=== PATIENT | female | born 1980 | race Asian ===

== ENCOUNTER 2022-01-21 19:57 | Emergency (ER) | payer OTHER ==
[2022-01-21 21:00] LABS: BASOPHILS % (AUTO) 0.2 %; EOSINOPHILS # (AUTO) 0.1 10^3/uL (0.0-0.7); EOSINOPHILS % (AUTO) 0.6 %; HCT - HEMATOCRIT 40.6 % (37.0-47.0); HGB - HEMOGLOBIN 13.7 g/dL (12.0-16.0); LYMPHOCYTES # (AUTO) 2.1 10^3/uL (1.5-3.5); LYMPHOCYTES % (AUTO) 17.1 %; MEAN CORPUSCULAR HGB CONC 33.7 g/dL (32.0-36.0); MEAN CORPUSCULAR VOLUME 85.8 fL (81.0-99.0); MEAN PLATELET VOLUME 10.7 fL (7.9-10.8); MONOCYTES # (AUTO) 0.9 10^3/uL (0.0-1.0); NEUTROPHILS # (AUTO) 9.2 10^3/uL (1.5-6.6); NEUTROPHILS % (AUTO) 74.9 %; PLT - PLATELET COUNT 217 10^3/uL (130-450); RED BLOOD COUNT 4.73 10^6/uL (4.20-5.40); RED CELL DISTRIBUTION WIDTH 12.6 % (12.0-15.0); WHITE BLOOD COUNT 12.4 x10^3/uL (4.8-10.8)
[2022-01-21 21:14] LABS: ALBUMIN 4.2 g/dL (3.2-5.5); ALBUMIN/GLOBULIN RATIO 1.3 (1.0-2.2); BILIRUBIN,TOTAL 0.5 mg/dL (0.2-1.0); POTASSIUM 3.3 mmol/L (3.5-5.0); TOTAL PROTEIN 7.4 g/dL (6.7-8.2)
[2022-01-21 21:20] LABS: BILIRUBIN,URINE NEGATIVE (NEGATIVE); GLUCOSE, URINE (UA) NEGATIVE (NEGATIVE); KETONES,URINE (UA) NEGATIVE (NEGATIVE); LEUKOCYTE ESTERASE, URINE NEGATIVE (NEGATIVE); NITRITE,URINE NEGATIVE (NEGATIVE); OCCULT BLOOD,URINE TRACE-INTA (NEGATIVE); PROTEIN,URINE TRACE mg/dL (NEGATIVE); UROBILINOGEN,URINE 0.2 (NORMAL) E.U./dL (NORMAL)
[2022-01-21 21:23] LABS: CLARITY,URINE CLEAR (CLEAR); HCG UR QUAL NEGATIVE
[2022-01-21] MEDS ORDERED: KETOROLAC 30 MG/ML VIAL IVP STA (22:43)
[2022-01-21] MEDS ORDERED: HYDROmorphone 1 MG/ML CARPUJECT IVP STA (22:43)
--- NOTE | 2022-01-21 23:39 | Ultrasound Report ---
PROCEDURE: Abdomen Limited INDICATIONS: upper abd pn after eating, AST elev TECHNIQUE: Real-time focused scanning was performed of the abdomen, with image documentation. COMPARISON: None. FINDINGS: The liver is increased in echogenicity suggestive of fatty infiltration. There is is suggestion of an ill-defined hypoechoic oval lesion in the right hepatic lobe measuring up to 1.0 cm. The gallbladder demonstrates no gallstones. There is gallbladder wall thickening including localized masslike thickening in the mid gallbladder measuring approximately 2.1 x 1.5 cm. There is suggestion of associated vascularity on color Doppler interrogation. This demonstrates heterogeneous internal ec hoes. No intrahepatic biliary ductal dilatation. The extrahepatic duct is at the upper limits of normal aleena suring approximately 0.6 cm. The pancreatic head and body appear unremarkable sonographically. The pancreatic tail was not well se en. Right kidney measures 9.6 cm. No hydronephrosis. Intrahepatic IVC appears patent. IMPRESSION: 1. Masslike wall thickening within the mid gallbladder with internal vascularity is suspicious for a mass such as gallbladder carcinoma. Recommend further evaluation with CT or MRI. 2. No gallstones or pericholecystic fluid. Reviewed by: Nathaniel Wood MD on 01/21/2022 11:38 PM PDT Approved by: Nathaniel Wood MD on 01/21/2022 11:38 PM PDT Station ID: [id number]
[2022-01-21] MEDS ORDERED: PIPERACILLIN/TAZOBACTAM 3.375 GM in SODIUM CHLORIDE 0.9% MINIBAG 100 ML IV STA (23:41)
--- NOTE | 2022-01-21 23:46 | CT Report ---
PROCEDURE: Abdomen/Pelvis W INDICATIONS: epigastric pain CONTRAST: IV CONTRAST: Optiray 320 ml: 100 PO CONTRAST: *NO PO CONTRAST TECHNIQUE: After the administration of intravenous contrast, 5 mm thick sections acquired from the diaphragms to the symphysis. 5 mm thick coronal and sagittal reformats were acquired. For radiation dose reducti on, the following was used: automated exposure control, adjustment of mA and/or kV according to mary ent size. COMPARISON: Concurrent ultrasound of the abdomen. FINDINGS: Image quality: Excellent. Lung bases: Unremarkable. Heart: Heart is normal in size. ABDOMEN: Liver: No mass lesion. Gallbladder:There is segmental narrowing and wall thickening of the mid gallbladder. No calcified ga llstones. Biliary ducts: No biliary ductal dilatation. Pancreas: Unremarkable. Spleen: Normal in size. Adrenal Glands: No adrenal nodules. Kidneys and Ureters: No hydronephrosis. Stomach and Bowel:There is moderate distention of the stomach. Mild wall thickening is noted in the gastric antrum. Small and large bowel are normal in caliber and wall thickness. The appendix is keysha l in appearance. Peritoneum:There is a small amount of intraperitoneal free fluid which appears within physiologic li mits. No free air. Ventral Wall: No hernia. Abdominal Nodes: No retroperitoneal or mesenteric adenopathy by size criteria. Vessels: Aorta and inferior vena cava are normal in size. PELVIS: Pelvic Organs: Unremarkable. Bladder: Unremarkable. Pelvic Nodes: No enlarged lymph nodes. Miscellaneous: No inguinal hernias are seen. Bones: Visualized osseous structures demonstrate no suspicious focal lesions. IMPRESSION: 1. Segmental narrowing and wall thickening in the mid gallbladder. Given the masslike thickening on t he concurrent ultrasound, the findings are suspicious for possible gallbladder neoplasm. The differen tial includes adenomyomatosis although the location is atypical. Recommend surgical consultation. 2. Moderate distention of the stomach with mild wall thickening in the antrum. The findings are nonsp ecific and may reflect a gastritis or partial gastric outlet obstruction. Reviewed by: Nathaniel Wood MD on 01/21/2022 11:44 PM PDT Approved by: Nathaniel Wood MD on 01/21/2022 11:44 PM PDT Station ID: [id number]
[2022-01-22] MEDS ORDERED: ONDANSETRON ODT 4 MG Prepack 2 TL PRN (02:22)
[2022-01-22] MEDS ORDERED: HYDROcod/ACET 5/325 Prepack 4 PO STA (02:22)
--- NOTE | 2022-01-22 02:25 | ED Physician Documentation ---
PD HPI ABD PAIN - Stated complaint Stated Complaint: ABD PX - Chief complaint Chief Complaint: Abd Pain - History obtained from History obtained from: Patient - Additional information Additional information: The patient comes to the emergency department with chief complaint of upper abdominal pain that started 3 days ago but got worse tonight. The patient states that she had just finished eating her dinner and within an hour to developed upper abdominal pain in her epigastrium. Patient states she did not have any nausea and that the pain subsided greatly overnight but did not completely go away. The patient states that she was fine yesterday but then today after eating dinner, she noticed almost immediate epigastric pain which was worse than the initial episode a few days ago. The patient states she had eaten a low-fat meal of rice and Sour soup, which is mainly made of vegetables. The patient states that the pain was extremely intense and finally, she asked her to bring her to the emergency department. The patient denies any jaundice. No nausea or vomiting. No fevers or chills. She has never had anything like this before a few days ago. Patient does note that her mother did have a cholecystectomy for gallstones. The patient denies any other medical problems. Review of Systems Ten Systems: 10 systems reviewed and negative Constitutional: reports: Reviewed and negative Eyes: reports: Reviewed and negative Ears: reports: Reviewed and negative Nose: reports: Reviewed and negative Throat: reports: Reviewed and negative Cardiac: reports: Reviewed and negative Respiratory: reports: Reviewed and negative GI: reports: Abdominal Pain : reports: Reviewed and negative Skin: reports: Reviewed and negative Musculoskeletal: reports: Reviewed and negative Neurologic: reports: Reviewed and negative Psychiatric: reports: Reviewed and negative Endocrine: reports: Reviewed and negative Immunocompromised: reports: Reviewed and negative PD PAST MEDICAL HISTORY - Past Medical History Past Medical History: No - Past Surgical History 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 - Present Medications Home Medications: Ambulatory Orders Medication Instructions Recorded Confirmed Cetirizine [ZyrTEC] 10 mg PO DAILY 01/21/22 01/21/22 Fluticasone [Flonase] 1 spray LEWIS DAILY 01/21/22 01/21/22 HYDROcod/ACETAM 5/325 [[place] 5/325] 1 - 2 tablet PO Q6H PRN #14 tablet 01/22/22 Ondansetron Odt [Zofran] 4 mg TL Q6H PRN #10 tablet 01/22/22 - Allergies Allergies/Adverse Reactions: Allergies Allergy/AdvReac Type Severity Reaction Status Date / Time No Known Drug Allergies Allergy Verified 01/21/22 20:26 - Social History Does the pt smoke?: No Smoking Status: Never smoker Does the pt drink ETOH?: No Does the pt have substance abuse?: No - Immunizations Immunizations are current?: Yes - POLST Patient has POLST: No PD ED PE NORMAL - Vitals Vital signs reviewed: Yes - General General: Alert and oriented X 3, Well developed/nourished, Other (The patient appears moderately uncomfortable but otherwise no apparent distress.) - HEENT HEENT: Atraumatic, PERRL, EOMI, Moist mucous membranes - Neck Neck: Supple, no meningeal sign - Cardiac Cardiac: RRR, No murmur, Strong equal pulses - Respiratory Respiratory: No respiratory distress, Clear bilaterally - Abdomen Abdomen: Soft, Non distended, Other (Minimal epigastric tenderness, no rebound or guarding) - Derm Derm: Normal color, Warm and dry, No rash - Extremities Extremities: No deformity, No edema - Neuro Neuro: Alert and oriented X 3, mental health unit lead psychologist 2-12 intact, Normal speech - Psych Psych: Normal mood, Normal affect Results - Vitals Vitals: Vital Signs - 24 hr 01/21/22 01/21/22 01/21/22 20:22 21:21 21:57 Temperature 36.3 C L Heart Rate 71 80 81 Respiratory 16 15 22 Rate Blood Pressure 147/73 H 153/95 H 138/91 H O2 Saturation 100 100 100 01/21/22 01/21/22 01/22/22 23:00 23:46 01:00 Temperature 36.5 C 36.5 C Heart Rate 88 94 73 Respiratory 14 14 13 Rate Blood Pressure 149/93 H 136/88 H 112/77 O2 Saturation 99 100 100 01/22/22 01/22/22 01:50 02:28 Temperature 36.1 C L 36.2 C L Heart Rate 85 84 Respiratory 15 13 Rate Blood Pressure 123/83 H 129/94 H O2 Saturation 100 100 Oxygen O2 Source Room air - Labs Labs: Laboratory Tests 01/21/22 01/21/22 01/21/22 20:55 20:55 21:02 WBC 12.4 H RBC 4.73 Hgb 13.7 Hct 40.6 MCV 85.8 MCH 29.0 MCHC 33.7 RDW 12.6 Plt Count 217 MPV 10.7 Neut # (Auto) 9.2 H Lymph # (Auto) 2.1 [place] # (Auto) 0.9 Eos # (Auto) 0.1 Baso # (Auto) 0.0 Absolute Nucleated RBC 0.00 Nucleated RBC % 0.0 Sodium 138 Potassium 3.3 L Chloride 105 Carbon Dioxide 24 Anion Gap 9.0 BUN 14 Creatinine 1.0 Estimated GFR (MDRD) 61 L Glucose 129 H Calcium 9.0 Total Bilirubin 0.5 AST 130 H ALT 59 Alkaline Phosphatase 62 Total Protein 7.4 Albumin 4.2 Globulin 3.2 Albumin/Globulin Ratio 1.3 Lipase 49 Urine Color YELLOW Urine Clarity CLEAR Urine pH 6.0 Ur Specific [place] >=1.030 H Urine Protein TRACE Urine Glucose (UA) NEGATIVE Urine Ketones NEGATIVE Urine Occult Blood TRACE-INTA Urine Nitrite NEGATIVE Urine Bilirubin NEGATIVE Urine Urobilinogen 0.2 (NORMAL) Ur Leukocyte Esterase NEGATIVE Ur Microscopic Review NOT INDICATED Urine Culture Comments NOT INDICATED Urine HCG, Qual NEGATIVE - Rads (name of study) Abdominal ultrasound Radiology: Prelim report reviewed (Dilated common bile duct at 6.4 mm; ga llbladder wall thickened, especially in the center of the gallbladder, concerning for mass. No gallstones. Pericholecystic fluid noted.) CT abdomen and pelvis Radiology: Final report received, See rad report (Thickening of central gallbladder, concerning for neoplasm.) PD MEDICAL DECISION MAKING - ED course Complexity details: reviewed results, re-evaluated patient, considered differential, d/w patient ED course: The patient was worked up with labs and ultrasound initially, followed by CT of the abdomen and pelvis. She had a mild white blood cell elevation and her AST was mildly elevated but otherwise, work-up was unremarkable from a laboratory standpoint. However, the ultrasound showed a thickening of the wall in the middle of the gallbladder which was concerning for a mass. The patient did not have any gallstones but did have an enlarged common bile duct, though her bilirubin was normal. There was some pericholecystic fluid as well. Because of all this, I sent the patient for CT scan of the abdomen pelvis to get a broader look at the structures around and see if there is any lymphadenopathy this was done and showed again findings concerning for neoplasm in the gallbladder. The radiologist did not note adenopathy specifically. I discussed the findings with Dr. Vidal, who is on-call for surgery at [facility]. She stated that she felt the patient should see their hepatobiliary specialist, Dr. Veronique Parker. Dr. Vidal stated she would help facilitate the patient getting expedited follow- up with Dr. Parker, and after taking the patient's information and phone numbers, stated that we should tell the patient that she will be receiving a call susannah orrow from [facility]. I have relayed the findings and the follow-up plan to the patient. The patient of course is upset about the diagnosis and understandably anxious. I have answered her questions as best as possible. The patient is stable for discharge home and has been given symptomatic treatment both in the ED and for at home. We have discussed the usual indications for return. Departure - Departure Disposition: 01 Home, Self Care Clinical Impression: Biliary tract cancer Abdominal pain Qualifiers: Abdominal location: upper abdomen, unspecified Qualified Code(s): R10.10 - Upper abdominal pain, unspecified Condition: Stable Prescriptions: HYDROcod/ACETAM 5/325 [[place] 5/325] 1 - 2 tablet PO Q6H PRN #14 tablet PRN Reason: Pain Ondansetron Odt [Zofran] 4 mg TL Q6H PRN #10 tablet PRN Reason: Nausea / Vomiting Comments: Your CT and ultrasound show concerning findings for possible cancer in your gallbladder. You do not have any gallstones. At this point in time, further investigation is needed to determine what treatment strategy is best. Your case has been discussed with Dr. Vidal of general surgery at [facility], and she would like you to see the liver and gallbladder specialist, Dr. Veronique Parker, and expedited follow-up. She is going to have the clinic call you tomorrow to set up an appointment to be seen and get further care. For now, you should eat a low-fat diet and take the pain and nausea medication if needed. A prescription for both pain and nausea medication has been electronically transmitted to the [facility] pharmacy in [place]. Please also make a follow-up appointment with your primary doctor to get help in expediting your care. Discharge Date/Time: 01/22/22 02:52
[2022-01-22 02:29] VITALS: BP 129/94
[2022-01-22] MEDS ORDERED: ONDANSETRON 4 MG/2 ML VIAL IVP STA (02:34)
== END 2022-01-22 02:52 | disposition home or self-care (01) ==
LOC: ED 19:57
DX: C24.9 Malignant neoplasm of biliary tract, unspecified (principal)
CPT/HCPCS: 36415; 74177; 76705; 80053; 81003; 81025; 83690; 85025; 93005; 96365; 96375; 99284; J1170; Q9967; 81001; 84703; 87086

== ENCOUNTER 2023-08-05 08:31 | Outpatient (CLI) | payer OTHER ==
[~2023-08-05 08:31] MED LIST: GADOTERATE MEGLUMINE 7.5 MMOL/15 ML VIAL ONE
[2023-08-05] MEDS: GADOTERATE MEGLUMINE 7.5 MMOL/15 ML VIAL IVP ONE (09:48)
--- NOTE | 2023-08-05 13:31 | MRI Report ---
PROCEDURE: Pelvis W/WO INDICATIONS: LLQ PAIN CONTRAST: 10 mL Clariscan TECHNIQUE: Coronal and axial T1 spin echo and STIR; coronal T2 HASTE with and without fat saturation; axial T2 H ASTE; sagittal T1 spin echo, T2 fast spin echo, and T2 HASTE through the pelvis. Postcontrast T1 spin echo with fat saturation in the axial, sagittal, and coronal planes. COMPARISON: CT abdomen/pelvis 01/21/2022 FINDINGS: Image quality: Diagnostic. Bones: Marrow is normal in overall signal. No acute trabecular bone injury. No abnormal osseous enh ancement. Mild facet hypertrophy and minimal disc desiccation at the lower lumbar spine. Hips are sym metric. No osteonecrosis. Soft tissues: No enhancing soft tissue mass. Visualized ligaments and tendons surrounding the pelvis appear to be intact. The visualized musculature is normal in bulk. No inguinal hernia. No significa nt lymphadenopathy. IMPRESSION: 1.No acute osseous abnormality. No significant ligament or tendon injury is seen. No abnormal osseous or soft tissue enhancement. 2.Mild degenerative changes in the lumbar spine. Reviewed by: Parag Castano MD on 08/05/2023 1:30 PM PDT Approved by: Parag Castano MD on 08/05/2023 1:30 PM PDT Station ID: [id number]
== END 2023-08-05 08:32 | disposition home or self-care (01) ==
LOC: DI 08:31
PROVIDERS: ATTEND Obstetrics & Gynecology
DX: R10.32 Left lower quadrant pain (principal); M47.816 Spondylosis without myelopathy or radiculopathy, lumbar region